=== PATIENT | male | born 1995 | race Caucasian/White ===

== ENCOUNTER 2018-10-19 20:15 | Emergency (ER) | payer OTHER, BC ==
[2018-10-19 20:22] VITALS: BP 113/66; PULSE 77; RESP 16; TEMP 99.4
[2018-10-19] MEDS ORDERED: ONDANSETRON ODT 4 MG TAB PO STA (20:50)
[2018-10-19] MEDS ORDERED: ACETAMINOPHEN TAB 500 MG TAB PO STA (20:50)
[2018-10-19] MEDS ORDERED: IBUPROFEN 800 MG TAB PO STA (20:50)
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
== END 2018-10-19 21:50 | disposition home or self-care (01) ==
LOC: EC 20:15
DX: S06.0X0A Concussion without loss of consciousness, initial encounter (principal); V43.52XA Car driver injured in collision with other type car in traffic accident, initial encounter; Y92.410 Unspecified street and highway as the place of occurrence of the external cause
CPT/HCPCS: 70450; 99284

== ENCOUNTER → 2023-01-15 | Outpatient (CLI) | payer OTHER ==
--- NOTE | 2023-01-15 14:03 | XR ---
EXAMINATION TYPE: XR ankle complete RT DATE OF EXAM: 01/15/2023 COMPARISON: NONE HISTORY: Pain TECHNIQUE: Frontal, lateral and oblique images of the right ankle are obtained. COMPARISON: None. FINDINGS: There is no acute fracture/dislocation evident. The joint spaces appear within normal pacheco its. The overlying soft tissue appears unremarkable. IMPRESSION: There is no acute fracture or dislocation seen.
== END | disposition home or self-care (01) ==
LOC: RADXRMAIN 13:40
PROVIDERS: ATTEND Internal Medicine
DX: M25.571 Pain in right ankle and joints of right foot (principal)

== ENCOUNTER → 2023-03-14 | Outpatient (CLI) | payer OTHER ==
--- NOTE | 2023-03-16 12:25 | MR ---
MRI right ankle. HISTORY: Right ankle pain and limited movement for 3 months. COMPARISON: None TECHNIQUE: Multiecho multiplanar images right ankle were obtained without contrast. FINDINGS: The osseous structures are intact and there is no bone contusion or fracture. No focal intraosseous a bnormalities are seen. The ankle mortise is intact and there is no joint effusion. The sinus Tarsi is unremarkable. There is no T no synovitis or tendon injury involving the Achilles tendon or the flexor or extensor t endons of the ankle. There is no evidence of ligamentous injury. The plantar soft tissues are normal. IMPRESSION: No significant abnormality seen.
== END | disposition home or self-care (01) ==
LOC: RADMRIMAIN 20:45
PROVIDERS: ATTEND Internal Medicine
DX: M25.571 Pain in right ankle and joints of right foot (principal)

== ENCOUNTER 2023-10-31 09:20 | Emergency (ER) | payer OTHER ==
[2023-10-31 09:28] VITALS: TEMP 98
--- NOTE | 2023-10-31 09:48 | ED ---
General Adult HPI - General Chief complaint: Abdominal Pain Stated complaint: severe back/side pain Time Seen by Provider: 10/31/23 09:24 Source: patient Mode of arrival: ambulatory Limitations: no limitations - History of Present Illness Initial comments: Dictation was produced using [employer] dictation software. please excuse any grammatical, word or spelling errors. Chief Complaint: 27-year-old male presents emergency department with right upper quadrant pain History of Present Illness: Patient 27-year-old male presents emergency department with chronic back pain. He states that over the last 1 to 2 days he has been having right upper quadrant abdominal pain. Patient states that he has been worked up for back pain in a similar area. States that now it feels like it in his belly. Denies any nausea. He is scheduled to have MRI outpatient for his back. Patient denies any fever. Denies any history of abdominal surgery. The ROS documented in this emergency department record has been reviewed and confirmed by me. Those systems with pertinent positive or negative responses have been documented in the HPI. All other systems are other negative and/or noncontributory. - Related Data Home Medications Medication Instructions Recorded Confirmed Selenium Sulfide 2.5% Lotion 1 applic TOPICAL DAILY PRN 10/31/23 10/31/23 Sertraline [Zoloft] 50 mg PO DAILY 10/31/23 10/31/23 calcium polycarbophiL [Fiber-Lax] 625 mg PO DAILY 10/31/23 10/31/23 Previous Rx's Medication Instructions Recorded HYDROcodone/APAP 5-325MG [[place] 1 tab PO Q6HR PRN 3 Days #12 tab 10/31/23 5-325] Ondansetron Odt [Zofran Odt] 4 mg PO Q8HR PRN #12 tab 10/31/23 Allergies Allergy/AdvReac Type Severity Reaction Status Date / Time No Known Allergies Allergy Verified 10/31/23 11:36 Review of Systems ROS Statement: Those systems with pertinent positive or pertinent negative responses have been documented in the HPI. ROS Other: All systems not noted in ROS Statement are negative. Past Medical History Past Medical History: No Reported History History of Any Multi-Drug Resistant Organisms: None Reported Past Surgical History: Ear Surgery Past Psychological History: No Psychological Hx Reported Past Alcohol Use History: Rare Past Drug Use History: None Reported General Exam - General Exam Comments Initial Comments: PHYSICAL EXAM: General Impression: Alert and oriented x3, mild distress secondary to pain HEENT: Normocephalic atraumatic, extra-ocular movements intact, pupils equal and reactive to light bilaterally, mucous membranes moist. Cardiovascular: Heart regular rate and rhythm Chest: Able to complete full sentences, no retractions, no tachypnea Abdomen: abdomen soft, palpatory tenderness to the right upper quadrant and epigastric area, positive Schultz sign, non-distended, no organomegaly Musculoskeletal: Pulses present and equal in all extremities, no peripheral edema Motor: no focal deficits noted Neurological: CN II-XII grossly intact, no focal motor or sensory deficits noted Skin: Intact with no visualized rashes Psych: Normal affect and mood Limitations: no limitations Course Vital Signs 10/31/23 10/31/23 09:23 11:08 Temperature 98.0 F Pulse Rate 80 62 Respiratory 18 16 Rate Blood Pressure 144/89 132/87 O2 Sat by Pulse 97 98 Oximetry - Reevaluation(s) Reevaluation #1: 10/31/23 09:48 Mother at the bedside states that everyone in her family has had their g allbladder removed. Medical Decision Making - Medical Decision Making Was pt. sent in by a medical professional or institution (, PA, MEDICINE AND HEALTH SERVICE MANAGER, urgent c are, hospital, or senior care...) When possible be specific @ -No Did you speak to anyone other than the patient for history (EMS, parent, family, police, friend...)? What history was obtained from this source @ -Some history obtained from patient's mother at the bedside states that several family members had her gallbladder removed Did you review nursing and triage notes (agree or disagree)? Why? @ -I reviewed and agree with nursing and triage notes Were old charts reviewed (outside hosp., previous admission, EMS record, old EKG, old radiological studies, urgent care reports/EKG's, senior care records)? Report findings @ -No old charts were reviewed Differential Diagnosis (chest pain, altered mental status, abdominal pain women, abdominal pain men, vaginal bleeding, musculoskeletal, weakness, fever, dyspnea, syncope, headache, dizziness, GI bleed, back pain, seizure, CVA, palpatations, mental health)? @ -Differential Abdominal Pain Men: Appendicitis, cholecystitis, diverticulosis, ischemic bowel, pancreatitis, hepatitis, UTI, gastroenteritis, AAA, incarcerated hernia, bowel obstruction, constipation, inflammatory bowel, hepatitis, peptic ulcer disease, splenic infarction, perforated viscus, testicular torsion, this is not meant to be an all-inclusive list EKG interpreted by me (3pts min.). @ -None done X-rays interpreted by me (1pt min.). @ -None done CT interpreted by me (1pt min.). @ -None done U/S interpreted by me (1pt. min.). @ -Ultrasound shows gallbladder gallstones versus sludge. Hepatic steatosis What testing was considered but not performed or refused? (CT, X-rays, U/S, labs)? Why? @ -None What meds were considered but not given or refused? Why? @ -None Was smoking cessation discussed for >3mins.? @ -No Were there social determinants of health that impacted care today? How? (Homelessness, low income, unemployed, alcoholism, drug addiction, transportation, low edu. Level, literacy, decrease access to med. care, senior care, rehab)? @ -No Was there de-escalation of care discussed even if they declined (Discuss DNR or withdrawal of care, Hospice)? DNR status @ -No What co-morbidities impacted this encounter? (DM, HTN, Smoking, COPD, CAD, Cancer, CVA, ARF, Chemo, Hep., AIDS, mental health diagnosis, sleep apnea, morbid obesity)? @ -Obesity Was patient admitted / discharged? Hospital course, mention meds given and route, prescriptions, significant lab abnormalities, going to OR and other pertinent info. @ -27-year-old male presents emergency department with right upper quadrant abdominal pain that radiates to the back. Vital signs upon arrival are within acceptable limits. Patient afebrile. Laboratory evaluation obtained. No leukocytosis. CBC metabolic panel is negative. Liver enzymes are negative. Ultrasound shows cholelithiasis versus sludge. No evidence of acute cholecystitis. Patient given symptomatic medications. Patient of outpatient referral to general surgery. Patient agreeable discharge. Return precautions discussed. Patient told to avoid fatty foods for the time being. Did you discuss the management of the patient with other professionals (professionals i.e. , PA, MEDICINE AND HEALTH SERVICE MANAGER, lab, RT, psych nurse, social services specialist, multineedle shirrer, teacher, dog control officer, manager case management)? Give summary @ -No Was critical care preformed (if so, how long)? @ -No Undiagnosed new problem with uncertain prognosis? @ -No Drug Therapy requiring intensive monitoring for toxicity (Heparin, Nitro, Insulin, Cardizem)? @ -No Were any procedures done? @ -No Diagnosis/symptom? Acute, or Chronic, or Acute on Chronic? Uncomplicated (without systemic symptoms) or Complicated (systemic symptoms)? @ -Symptomatic gallbladder Side effects of treatment? @ -No Exacerbation, Progression, or Severe Exacerbation? @ -No Poses a threat to life or bodily function? How? (Chest pain, [place], [place], pneumonia, PE, COPD, DKA, ARF, appy, cholecystitis, CVA, Diverticulitis, Homicidal, Suicidal, threat to staff... and all critical care pts) @ -No - Lab Data Result diagrams: 10/31/23 09:52 10/31/23 09:52 Lab Results 10/31/23 10/31/23 Range/Units 09:52 09:52 WBC 9.6 (3.8-10.6) k/uL RBC 5.43 (4.30-5.90) m/uL Hgb 14.9 (13.0-17.5) gm/dL Hct 45.4 (39.0-53.0) % MCV 83.5 (80.0-100.0) fL MCH 27.5 (25.0-35.0) pg MCHC 32.9 (31.0-37.0) g/dL RDW 12.9 (11.5-15.5) % Plt Count 322 (150-450) k/uL MPV 6.9 Neutrophils % 55 % Lymphocytes % 33 % Monocytes % 7 % Eosinophils % 3 % Basophils % 1 % Neutrophils # 5.3 (1.3-7.7) k/uL Lymphocytes # 3.2 (1.0-4.8) k/uL Monocytes # 0.7 (0-1.0) k/uL Eosinophils # 0.2 (0-0.7) k/uL Basophils # 0.1 (0-0.2) k/uL Sodium 139 (137-145) mmol/L Potassium 3.8 (3.5-5.1) mmol/L Chloride 110 H (98-107) mmol/L Carbon Dioxide 21 L (22-30) mmol/L Anion Gap 8 mmol/L BUN 17 (9-20) mg/dL Creatinine 0.77 (0.66-1.25) mg/dL Est GFR (CKD-EPI)AfAm >90 (>60 ml/min/1.73 sqM) Est GFR (CKD-EPI)NonAf >90 (>60 ml/min/1.73 sqM) Glucose 130 H (74-99) mg/dL Calcium 9.3 (8.4-10.2) mg/dL Total Bilirubin 0.4 (0.2-1.3) mg/dL AST 24 (17-59) U/L ALT 27 (4-49) U/L Alkaline Phosphatase 98 (38-126) U/L Total Protein 6.7 (6.3-8.2) g/dL Albumin 4.0 (3.5-5.0) g/dL Lipase 116 (23-300) U/L Disposition Clinical Impression: Gallbladder attack Disposition: HOME SELF-CARE Condition: Fair Instructions (If sedation given, give patient instructions): Gallstones (ED) Additional Instructions: Below is provided to you are a collection of general surgeons that are in town. Prescriptions: HYDROcodone/APAP 5-325MG [[place] 5-325] 1 tab PO Q6HR PRN 3 Days #12 tab PRN Reason: Severe Pain Ondansetron Odt [Zofran Odt] 4 mg PO Q8HR PRN #12 tab PRN Reason: Nausea Is patient prescribed a controlled substance at d/c from ED?: Yes If prescribed controlled substance>3 days was MAPS reviewed?: Prescribed <3 Days Referrals: Aramis Martinez MD [STAFF PHYSICIAN] - 1-2 days Indiana Villaseñor MD [STAFF PHYSICIAN] - 1-2 days Renaldo Javier MD [Medical Doctor] - 1-2 days Time of Disposition: 12:15
[2023-10-31] MEDS: SODIUM CHLORIDE 0.9% 1,000 ML IV STA (09:53)
[2023-10-31] MEDS: MORPHINE SULFATE 4 MG/ML SYRINGE IVP PRN (09:56)
[2023-10-31] MEDS: ONDANSETRON 4 MG/2 ML VIAL IVP STA ×2 (10:02→11:28)
[2023-10-31 10:15] LABS: ALT 27 U/L (4-49); AST 24 U/L (17-59); African American GFR (CKD) >90 (>60 ml/min/1.73 sqM); Alkaline Phosphatase 98 U/L (38-126); Anion Gap 8 mmol/L; Blood Urea Nitrogen 17 mg/dL (9-20); Calcium 9.3 mg/dL (8.4-10.2); Carbon Dioxide 21 mmol/L (22-30); Chloride 110 mmol/L (98-107); Glucose 130 mg/dL (74-99); Lipase 116 U/L (23-300); Non-African American GFR(CKD) >90 (>60 ml/min/1.73 sqM); Potassium 3.8 mmol/L (3.5-5.1); Sodium 139 mmol/L (137-145); Total Bilirubin 0.4 mg/dL (0.2-1.3); Total Protein 6.7 g/dL (6.3-8.2)
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
[2023-10-31 10:37] LABS: Basophils # (A) 0.1 k/uL (0-0.2); Basophils % (A) 1 %; Eosinophils # (A) 0.2 k/uL (0-0.7); Eosinophils % (A) 3 %; HCT 45.4 % (39.0-53.0); HGB 14.9 gm/dL (13.0-17.5); Lymphocytes # (A) 3.2 k/uL (1.0-4.8); Lymphocytes % (A) 33 %; MCH 27.5 pg (25.0-35.0); MCHC 32.9 g/dL (31.0-37.0); MCV 83.5 fL (80.0-100.0); Mean Platelet Volume 6.9; Monocytes # (A) 0.7 k/uL (0-1.0); Monocytes % (A) 7 %; Neutrophils # (A) 5.3 k/uL (1.3-7.7); Neutrophils % (A) 55 %; Platelet Count 322 k/uL (150-450); RBC 5.43 m/uL (4.30-5.90); RDW 12.9 % (11.5-15.5); WBC 9.6 k/uL (3.8-10.6)
[2023-10-31] MEDS: MORPHINE SULFATE 4 MG/ML SYRINGE IV STA (11:29)
[2023-10-31 12:42] VITALS: BP 116/72; PULSE 65; RESP 18
== END 2023-10-31 12:41 | disposition home or self-care (01) ==
LOC: EC 09:20
DX: G89.29 Other chronic pain (principal); K80.20 Calculus of gallbladder without cholecystitis without obstruction
CPT/HCPCS: 36415; 80053; 83690; 85025; 76705; 99284; 96374; 96375; 96376 ×2; 96361; J2270; J2405

== ENCOUNTER 2023-11-01 21:54 | Emergency (ER) | payer OTHER ==
[2023-11-01] MEDS: ONDANSETRON 4 MG/2 ML VIAL IVP STA (23:40)
[2023-11-01] MEDS: SODIUM CHLORIDE 0.9% 1,000 ML IV STA (23:41)
[2023-11-01] MEDS: KETOROLAC 15 MG/ML 1 ML VIAL IVP STA (23:42)
[2023-11-01] MEDS: PANTOPRAZOLE 40 MG/10 ML VIAL IVP STA (23:45)
[2023-11-01 23:59] LABS: Basophils % (A) 0 %; Eosinophils # (A) 0.1 k/uL (0-0.7); Eosinophils % (A) 1 %; HCT 46.7 % (39.0-53.0); HGB 15.2 gm/dL (13.0-17.5); Lymphocytes # (A) 1.4 k/uL (1.0-4.8); Lymphocytes % (A) 11 %; MCH 27.6 pg (25.0-35.0); MCHC 32.5 g/dL (31.0-37.0); MCV 84.8 fL (80.0-100.0); Mean Platelet Volume 7.1; Monocytes # (A) 0.9 k/uL (0-1.0); Monocytes % (A) 7 %; Neutrophils # (A) 10.8 k/uL (1.3-7.7); Neutrophils % (A) 81 %; Platelet Count 290 k/uL (150-450); RDW 12.8 % (11.5-15.5); WBC 13.3 k/uL (3.8-10.6)
[2023-11-02 00:19] LABS: ALT 84 U/L (4-49); AST 113 U/L (17-59); African American GFR (CKD) >90 (>60 ml/min/1.73 sqM); Albumin 4.2 g/dL (3.5-5.0); Alkaline Phosphatase 131 U/L (38-126); Amylase 37 U/L (30-110); Anion Gap 6 mmol/L; Blood Urea Nitrogen 10 mg/dL (9-20); Calcium 9.5 mg/dL (8.4-10.2); Carbon Dioxide 24 mmol/L (22-30); Chloride 107 mmol/L (98-107); Glucose 101 mg/dL (74-99); Lipase 57 U/L (23-300); Non-African American GFR(CKD) >90 (>60 ml/min/1.73 sqM); Potassium 3.8 mmol/L (3.5-5.1); Sodium 137 mmol/L (137-145); Total Bilirubin 2.6 mg/dL (0.2-1.3); Total Protein 7.1 g/dL (6.3-8.2)
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
[2023-11-02 00:44] LABS: Partial Thromboplastin Time 24.3 sec (22.0-30.0); Prothrombin Time 11.1 sec (10.0-12.5)
--- NOTE | 2023-11-02 00:52 | ED ---
General Adult HPI - General Chief complaint: Abdominal Pain Stated complaint: abd pain back pain Time Seen by Provider: 11/01/23 22:35 Source: patient, RN notes reviewed, old records reviewed Mode of arrival: ambulatory Limitations: no limitations - History of Present Illness Initial comments: Patient is a 27-year-old male who presents emergency department complaining of abdominal pain. Was recently seen for similar symptoms. Is complaining of epigastric or right upper quadrant abdominal discomfort. Has been intermittent for weeks to months however worse over the last week or so. Worse with eating. No appetite. Had a severe episode of pain earlier. Has had nonbilious nonbloody emesis as well. Presents for further evaluation. No significant pain at this point. Patient was seen here yesterday and diagnosed with biliary colic with possible stones or sludge seen in the gallbladder. Labs looked okay. Patient returns today due to increased pain. Currently is resting comfortably with minimal pain but states the pain meds he took at home might of kicked him. Has no other acute complaints at this time. No significant past medical history otherwise. Presents for further evaluation. - Related Data Home Medications Medication Instructions Recorded Confirmed Selenium Sulfide 2.5% Lotion 1 applic TOPICAL DAILY PRN 10/31/23 10/31/23 Sertraline [Zoloft] 50 mg PO DAILY 10/31/23 10/31/23 calcium polycarbophiL [Fiber-Lax] 625 mg PO DAILY 10/31/23 10/31/23 Previous Rx's Medication Instructions Recorded HYDROcodone/APAP 5-325MG [[place] 1 tab PO Q6HR PRN 3 Days #12 tab 10/31/23 5-325] Ondansetron Odt [Zofran Odt] 4 mg PO Q8HR PRN #12 tab 10/31/23 Allergies Allergy/AdvReac Type Severity Reaction Status Date / Time No Known Allergies Allergy Verified 11/01/23 22:27 Review of Systems ROS Statement: Those systems with pertinent positive or pertinent negative responses have been documented in the HPI. Review of Systems: CONST: Denies fever EYES: Denies blurry vision ENT: Denies nasal congestion C/V: Denies Chest pain RESP: Denies shortness of breath GI: Endorses abdominal pain : Denies dysuria SKIN: Denies rash. MSK: Denies joint pain. NEURO: Denies headache ROS Other: All systems not noted in ROS Statement are negative. Past Medical History Past Medical History: No Reported History Additional Past Medical History / Comment(s): gallstones/sludge History of Any Multi-Drug Resistant Organisms: None Reported Past Surgical History: Ear Surgery Past Psychological History: No Psychological Hx Reported Smoking Status: Never smoker Past Alcohol Use History: Rare Past Drug Use History: None Reported General Exam - General Exam Comments Initial Comments: General: Appears in mild distress secondary to abdominal discomfort HEAD: Normal with no signs of head trauma. EYES: PERRLA, EOMI, conjunctiva normal, no discharge. ENT: Hearing grossly intact, normal oropharynx. RESPIRATORY: Clear breath sounds bilaterally. No wheezes, rales, or rhonchi. C/V: Regular rate and rhythm. S1 and S2 auscultated, no edema, peripheral pulses 2+ and intact throughout ABD: Abdomen is soft, nondistended. Tender to palpation in the right upper quadrant and epigastric region. EXT: Normal range of motion, no obvious deformity SKIN: No rashes or lesions observed on exposed skin. NEURO: Alert and oriented x 4. Limitations: no limitations Course Vital Signs 11/01/23 11/02/23 11/02/23 22:23 00:27 02:15 Temperature 99.4 F 98.4 F Pulse Rate 86 76 70 Respiratory 20 18 18 Rate Blood Pressure 112/77 135/80 148/70 O2 Sat by Pulse 96 97 97 Oximetry Medical Decision Making - Medical Decision Making Was pt. sent in by a medical professional or institution (JORDYN Harrington, DATABASE MANAGEMENT SYSTEM SPECIALIST, urgent care, hospital, or alf...) When possible be specific @ -No Did you speak to anyone other than the patient for history (EMS, parent, family, police, friend...)? What history was obtained from this source @ -No Did you review nursing and triage notes (agree or disagree)? Why? @ -I reviewed and agree with nursing and triage notes Were old charts reviewed (outside hosp., previous admission, EMS record, old EKG, old radiological studies, urgent care reports/EKG's, alf records)? Report findings @ -Reviewed charts as well as gallbladder ultrasound from yesterday. Labs u nremarkable. Ultrasound revealed biliary sludge. Differential Diagnosis (chest pain, altered mental status, abdominal pain women, abdominal pain men, vaginal bleeding, weakness, fever, dyspnea, syncope, headache, dizziness, GI bleed, back pain, seizure, CVA, palpatations, mental health, musculoskeletal)? @ -Differential Abdominal Pain Men: Appendicitis, cholecystitis, diverticulosis, ischemic bowel, pancreatitis, hepatitis, UTI, gastroenteritis, AAA, incarcerated hernia, bowel obstruction, co nstipation, inflammatory bowel, hepatitis, peptic ulcer disease, splenic infarction, perforated viscus, testicular torsion, this is not meant to be an all-inclusive list EKG interpreted by me (3pts min.). @ -None done X-rays interpreted by me (1pt min.). @ -None done CT interpreted by me (1pt min.). @ -None done U/S interpreted by me (1pt. min.). @ -Gallbladder ultrasound read demonstrates biliary sludge. Gallbladder wall thickness is 0.4 cm. Unable to visualize the CBD. What testing was considered but not performed or refused? (CT, X-rays, U/S, labs)? Why? @ -None What meds were considered but not given or refused? Why? @ -None Did you discuss the management of the patient with other professionals (professionals i.e. , PA, DATABASE MANAGEMENT SYSTEM SPECIALIST, lab, RT, psych nurse, social sciences department chair, compensation programs manager, teacher, admitting officer, nurse case management)? Give summary @ -Discussed the case with Dr. Javier who was in agreement that patient does not need to be transferred for ERCP at this time as patient is asymptomatic. Was in agreement with plan for follow-up. Low suspicion for choledocholithiasis at this time as patient is a hyper bilirubinemia that is unconjugated. Was smoking cessation discussed for >3mins.? @ -No Was critical care preformed (if so, how long)? @ -No Were there social determinants of health that impacted care today? How? (Homelessness, low income, unemployed, alcoholism, drug addiction, transportation, low edu. Level, literacy, decrease access to med. care, penitentiary, rehab)? @ -No Was there de-escalation of care discussed even if they declined (Discuss DNR or withdrawal of care, Hospice)? DNR status @ -No What co-morbidities impacted this encounter? (DM, HTN, Smoking, COPD, CAD, Canc er, CVA, ARF, Chemo, Hep., AIDS, mental health diagnosis, sleep apnea, morbid obesity)? @ -None Was patient admitted / discharged? Hospital course, mention meds given and route, prescriptions, significant lab abnormalities, going to OR and other pertinent info. @ -Based on the patient's presentation and physical exam, presents again for abdominal pain in the right upper quadrant. Concern for gallbladder pathology. Presents for further evaluation. Vital signs currently within acceptable limi ts. Patient be symptomatically treat with IV fluids, analgesia medications, Zofran, Protonix. We will obtain abdominal labs as well as repeat ultrasound of the gallbladder. Patient was in agreement this plan. Gallbladder ultrasound read demonstrates biliary sludge. Difficult to visualize the CBD. Patient's labs remarkable for leukocytosis of 13, as well as elevated bilirubin to 2.6, AST and ALT elevated minimally as well as minimally elevated alk phos. All of these are changes from yesterday's labs. Dr. Javier of surgery was paged however it did not initially respond. I did order fractionated bilirubins at this time. Fractionated bilirubin is returned remarkable more for a unconjugated hyperbilirubinemia not a conjugated which is not fall in line with choledocholithiasis. I discussed the results with Dr. Javier who agreed with this assessment and status patient's pain and nausea is not controlled he can be admitted however can otherwise follow-up with Dr. Martinez next week. Is in agreement that patient does not require transfer at this time for GI eval for possible ERCP. I discussed this with the patient. He is feeling improved. He would like to go home.I did offer observation admission which patient declined. He would like to be discharged home. I believe this is reasonable. He has pain meds and Zofran tablets at home. He will be discharged home at this time with strict return precautions. I instructed the patient to follow up with their PCP in the next 1-3 days. I explained that the patient should return to the emergency department if they experience any worsening symptoms. Strict return precautions were discussed with the patient. The patient expressed understanding of these instructions. I answered all questions that the patient had. The patient was discharged home in [good] condition with their prescriptions and follow up information. Undiagnosed new problem with uncertain prognosis? @ -No Drug Therapy requiring intensive monitoring for toxicity (Heparin, Nitro, Insulin, Cardizem)? @ -No Were any procedures done? @ -No Diagnosis/symptom? @ -Biliary colic Acute, or Chronic, or Acute on Chronic? @ -Acute Uncomplicated (without systemic symptoms) or Complicated (systemic symptoms)? @ -Complicated Side effects of treatment? @ -None Exacerbation, Progression, or Severe Exacerbation] @ -No Poses a threat to life or bodily function? @ -Unlikely - Lab Data Result diagrams: 11/01/23 23:33 11/01/23 23:33 Lab Results 11/01/23 11/01/23 11/01/23 Range/Units 23:33 23:33 23:33 WBC 13.3 H (3.8-10.6) k/uL RBC 5.50 (4.30-5.90) m/uL Hgb 15.2 (13.0-17.5) gm/dL Hct 46.7 (39.0-53.0) % MCV 84.8 (80.0-100.0) fL MCH 27.6 (25.0-35.0) pg MCHC 32.5 (31.0-37.0) g/dL RDW 12.8 (11.5-15.5) % Plt Count 290 (150-450) k/uL MPV 7.1 Neutrophils % 81 % Lymphocytes % 11 % Monocytes % 7 % Eosinophils % 1 % Basophils % 0 % Neutrophils # 10.8 H (1.3-7.7) k/uL Lymphocytes # 1.4 (1.0-4.8) k/uL Monocytes # 0.9 (0-1.0) k/uL Eosinophils # 0.1 (0-0.7) k/uL Basophils # 0.0 (0-0.2) k/uL PT (10.0-12.5) sec INR (<1.2) APTT (22.0-30.0) sec Sodium 137 (137-145) mmol/L Potassium 3.8 (3.5-5.1) mmol/L Chloride 107 (98-107) mmol/L Carbon Dioxide 24 (22-30) mmol/L Anion Gap 6 mmol/L BUN 10 (9-20) mg/dL Creatinine 0.68 (0.66-1.25) mg/dL Est GFR (CKD-EPI)AfAm >90 (>60 ml/min/1.73 sqM) Est GFR (CKD-EPI)NonAf >90 (>60 ml/min/1.73 sqM) Glucose 101 H (74-99) mg/dL Plasma Lactic Acid Jesus 1.0 (0.7-2.0) mmol/L Calcium 9.5 (8.4-10.2) mg/dL Total Bilirubin 2.6 H (0.2-1.3) mg/dL Conjugated Bilirubin (0.0-0.3) mg/dL Unconjugated Bilirubin (0.0-1.1) mg/dL Delta Bilirubin (0.0-0.2) mg/dL AST 113 H (17-59) U/L ALT 84 H (4-49) U/L Alkaline Phosphatase 131 H (38-126) U/L Total Protein 7.1 (6.3-8.2) g/dL Albumin 4.2 (3.5-5.0) g/dL Amylase 37 (30-110) U/L Lipase 57 (23-300) U/L 11/01/23 11/02/23 Range/Units 23:51 00:50 WBC (3.8-10.6) k/uL RBC (4.30-5.90) m/uL Hgb (13.0-17.5) gm/dL Hct (39.0-53.0) % MCV (80.0-100.0) fL MCH (25.0-35.0) pg MCHC (31.0-37.0) g/dL RDW (11.5-15.5) % Plt Count (150-450) k/uL MPV Neutrophils % % Lymphocytes % % Monocytes % % Eosinophils % % Basophils % % Neutrophils # (1.3-7.7) k/uL Lymphocytes # (1.0-4.8) k/uL Monocytes # (0-1.0) k/uL Eosinophils # (0-0.7) k/uL Basophils # (0-0.2) k/uL PT 11.1 (10.0-12.5) sec INR 1.0 (<1.2) APTT 24.3 (22.0-30.0) sec Sodium (137-145) mmol/L Potassium (3.5-5.1) mmol/L Chloride (98-107) mmol/L Carbon Dioxide (22-30) mmol/L Anion Gap mmol/L BUN (9-20) mg/dL Creatinine (0.66-1.25) mg/dL Est GFR (CKD-EPI)AfAm (>60 ml/min/1.73 sqM) Est GFR (CKD-EPI)NonAf (>60 ml/min/1.73 sqM) Glucose (74-99) mg/dL Plasma Lactic Acid Jesus (0.7-2.0) mmol/L Calcium (8.4-10.2) mg/dL Total Bilirubin 2.6 H (0.2-1.3) mg/dL Conjugated Bilirubin 0.2 (0.0-0.3) mg/dL Unconjugated Bilirubin 1.2 H (0.0-1.1) mg/dL Delta Bilirubin 1.2 H (0.0-0.2) mg/dL AST (17-59) U/L ALT (4-49) U/L Alkaline Phosphatase (38-126) U/L Total Protein (6.3-8.2) g/dL Albumin (3.5-5.0) g/dL Amylase (30-110) U/L Lipase (23-300) U/L Disposition Clinical Impression: Biliary colic Disposition: HOME SELF-CARE Condition: Good Instructions (If sedation given, give patient instructions): Biliary Colic (ED), Abdominal Pain (ED) Is patient prescribed a controlled substance at d/c from ED?: No Referrals: Vic Sutton DO [Primary Care Provider] - 1-2 days Aramis Martinez MD [STAFF PHYSICIAN] - 1-2 days Time of Disposition: 02:09
[2023-11-02 01:06] VITALS: RESP 18
[2023-11-02] MEDS: METOCLOPRAMIDE 5 MG/ML 2 ML VIAL IVP STA (01:08)
[2023-11-02 01:48] LABS: Bilirubin, Conjugated 0.2 mg/dL (0.0-0.3); Bilirubin, Delta 1.2 mg/dL (0.0-0.2); Bilirubin,Unconjugated 1.2 mg/dL (0.0-1.1); Total Bilirubin 2.6 mg/dL (0.2-1.3)
[2023-11-02 02:15] VITALS: BP 148/70; PULSE 70; TEMP 98.4
== END 2023-11-02 02:16 | disposition home or self-care (01) ==
LOC: EC 21:54
DX: K80.50 Calculus of bile duct without cholangitis or cholecystitis without obstruction (principal)
CPT/HCPCS: 36415; 80053; 82150; 83605; 83690; 85025; 85610; 85730; 99285; 96374; 96375 ×3; 96361; J2405; J1885; C9113; 76705; 82248

== ENCOUNTER 2023-11-03 15:46 | Emergency (ER) | payer OTHER ==
[2023-11-03] MEDS: SODIUM CHLORIDE 0.9% 1,000 ML IV STA (16:32)
[2023-11-03] MEDS: ONDANSETRON 4 MG/2 ML VIAL IVP STA (16:34)
[2023-11-03] MEDS: MORPHINE SULFATE 4 MG/ML SYRINGE IVP STA (16:34)
[2023-11-03] MEDS: KETOROLAC 15 MG/ML 1 ML VIAL IVP STA (16:35)
[2023-11-03 16:47] LABS: Basophils % (A) 0 %; Eosinophils # (A) 0.1 k/uL (0-0.7); Eosinophils % (A) 1 %; HCT 42.6 % (39.0-53.0); HGB 14.6 gm/dL (13.0-17.5); Lymphocytes # (A) 1.4 k/uL (1.0-4.8); Lymphocytes % (A) 14 %; MCH 28.8 pg (25.0-35.0); MCHC 34.2 g/dL (31.0-37.0); MCV 84.3 fL (80.0-100.0); Mean Platelet Volume 7.3; Monocytes # (A) 0.8 k/uL (0-1.0); Monocytes % (A) 8 %; Neutrophils # (A) 7.4 k/uL (1.3-7.7); Neutrophils % (A) 75 %; Platelet Count 302 k/uL (150-450); RBC 5.05 m/uL (4.30-5.90); RDW 12.9 % (11.5-15.5); WBC 9.9 k/uL (3.8-10.6)
[2023-11-03 17:02] LABS: ALT 169 U/L (4-49); AST 81 U/L (17-59); African American GFR (CKD) >90 (>60 ml/min/1.73 sqM); Albumin 3.9 g/dL (3.5-5.0); Alkaline Phosphatase 189 U/L (38-126); Amylase 61 U/L (30-110); Anion Gap 12 mmol/L; Bilirubin, Conjugated 3.1 mg/dL (0.0-0.3); Bilirubin, Delta 2.1 mg/dL (0.0-0.2); Bilirubin,Unconjugated 1.5 mg/dL (0.0-1.1); Blood Urea Nitrogen 9 mg/dL (9-20); Calcium 9.1 mg/dL (8.4-10.2); Carbon Dioxide 19 mmol/L (22-30); Chloride 106 mmol/L (98-107); Glucose 130 mg/dL (74-99); Lipase 451 U/L (23-300); Non-African American GFR(CKD) >90 (>60 ml/min/1.73 sqM); Potassium 3.5 mmol/L (3.5-5.1); Sodium 137 mmol/L (137-145); Total Bilirubin 6.7 mg/dL (0.2-1.3); Total Protein 6.8 g/dL (6.3-8.2)
--- NOTE | 2023-11-03 17:14 | ED ---
Abdominal Pain HPI - General Chief Complaint: Abdominal Pain Stated Complaint: abd pain, SOB Time Seen by Provider: 11/03/23 16:13 Source: patient Mode of arrival: ambulatory Limitations: no limitations - History of Present Illness Initial Comments: 27-year-old male presenting with chief complaint of abdominal pain. Patient has had worsening right upper quadrant pain. He was seen here on the and and had ultrasound performed, he does have biliary sludge and possible stones. During his visit on the he did have an elevated bilirubin 3.1, however because this was mostly unconjugated bilirubin the decision was made to have him follow-up in the office with surgery. He does have an appointment on Sunday to meet with general surgeon Dr. Martinez. However he states that the pain has been persistent and worsening. He has been able to drink but has had a decreased appetite. He notices yellowing of the skin. States that his urine is also darker. No fevers. No vomiting. - Related Data Home Medications Medication Instructions Recorded Confirmed Selenium Sulfide 2.5% Lotion 1 applic TOPICAL DAILY PRN 10/31/23 10/31/23 Sertraline [Zoloft] 50 mg PO DAILY 10/31/23 10/31/23 calcium polycarbophiL [Fiber-Lax] 625 mg PO DAILY 10/31/23 10/31/23 Previous Rx's Medication Instructions Recorded HYDROcodone/APAP 5-325MG [[place] 1 tab PO Q6HR PRN 3 Days #12 tab 10/31/23 5-325] Ondansetron Odt [Zofran Odt] 4 mg PO Q8HR PRN #12 tab 10/31/23 Allergies Allergy/AdvReac Type Severity Reaction Status Date / Time No Known Allergies Allergy Verified 11/03/23 15:56 Review of Systems ROS Statement: Those systems with pertinent positive or pertinent negative responses have been documented in the HPI. ROS Other: All systems not noted in ROS Statement are negative. Past Medical History Past Medical History: No Reported History Additional Past Medical History / Comment(s): gallstones/sludge History of Any Multi-Drug Resistant Organisms: None Reported Past Surgical History: Ear Surgery Past Psychological History: No Psychological Hx Reported Smoking Status: Never smoker Past Alcohol Use History: Rare Past Drug Use History: None Reported General Exam Limitations: no limitations General appearance: alert, in no apparent distress Head exam: Present: atraumatic, normocephalic Eye exam: Present: EOMI, scleral icterus Neck exam: Present: normal inspection. Absent: meningismus Respiratory exam: Present: normal lung sounds bilaterally. Absent: respiratory distress, wheezes, rales, rhonchi, stridor Cardiovascular Exam: Present: regular rate, normal rhythm, normal heart sounds. Absent: systolic murmur, diastolic murmur, rubs, gallop, clicks GI/Abdominal exam: Present: soft, tenderness, guarding. Absent: distended, rebound, rigid Expanded GI/Abdominal exam: Present: Schlutz's sign Neurological exam: Present: alert, oriented X3 Psychiatric exam: Present: normal affect, normal mood Skin exam: Present: warm, dry Course Vital Signs 11/03/23 11/03/23 15:52 18:27 Temperature 98.3 F 98.4 F Pulse Rate 78 58 L Respiratory 16 18 Rate Blood Pressure 103/68 128/73 O2 Sat by Pulse 96 96 Oximetry Medical Decision Making - Medical Decision Making Was pt. sent in by a medical professional or institution (, PA, JAVA XML DEVELOPER, urgent care, hospital, or detention...) When possible be specific @ -No Did you speak to anyone other than the patient for history (EMS, parent, family, police, friend...)? What history was obtained from this source @ -No Did you review nursing and triage notes (agree or disagree)? Why? @ -I reviewed and agree with nursing and triage notes Were old charts reviewed (outside hosp., previous admission, EMS record, old EKG, old radiological studies, urgent care reports/EKG's, detention records)? Report findings @ -Patient's previous 2 visits were reviewed Differential Diagnosis (chest pain, altered mental status, abdominal pain women, abdominal pain men, vaginal bleeding, weakness, fever, dyspnea, syncope, headache, dizziness, GI bleed, back pain, seizure, CVA, palpatations, mental health, musculoskeletal)? @ -[facility] Differential Abdominal Pain Men: Appendicitis, cholecystitis, diverticulosis, ischemic bowel, pancreatitis, hepatitis, UTI, gastroenteritis, AAA, incarcerated hernia, bowel obstruction, constipation, inflammatory bowel, hepatitis, peptic ulcer disease, splenic infarction, perforated viscus, testicular torsion... This is not meant to be an all-inclusive list EKG interpreted by me (3pts min.). @ -As above X-rays interpreted by me (1pt min.). @ -None done CT interpreted by me (1pt min.). @ -None done U/S interpreted by me (1pt. min.). @ -Ultrasound shows slightly hypoechoic appearance to the liver may be in a t echnical basis or could reflect hepatitis. Correlate with LFTs and risk factors. There seems to be some scattered double ducts in the liver which can be seen with intrahepatic biliary ductal dilation. Given the normal caliber of the bile duct cholestasis is a consideration. Correlate with alkaline phosphatase and bilirubin levels. Echogenic sludge filling the gallbladder lumen. Nonspecific gallbladder wall thickening. What testing was considered but not performed or refused? (CT, X-rays, U/S, labs)? Why? @ -None What meds were considered but not given or refused? Why? @ -None Did you discuss the management of the patient with other professionals (professionals i.e. , PA, JAVA XML DEVELOPER, lab, RT, psych nurse, marriage and family social worker, trial lawyer, teacher, nuclear officer, cyanide case hardener)? Give summary @ -No Was smoking cessation discussed for >3mins.? @ -No Was critical care preformed (if so, how long)? @ -No Were there social determinants of health that impacted care today? How? (Homelessness, low income, unemployed, alcoholism, drug addiction, transportation, low edu. Level, literacy, decrease access to med. care, care home, rehab)? @ -No Was there de-escalation of care discussed even if they declined (Discuss DNR or withdrawal of care, Hospice)? DNR status @ -No What co-morbidities impacted this encounter? (DM, HTN, Smoking, COPD, CAD, Cancer, CVA, ARF, Chemo, Hep., AIDS, mental health diagnosis, sleep apnea, morbid obesity)? @ -None Was patient admitted / discharged? Hospital course, mention meds given and route, prescriptions, significant lab abnormalities, going to OR and other pertinent info. @ -27-year-old male presenting chief complaint of worsening right upper quadrant pain. Patient has known gallstones and sludge. Labs show bilirubin of 6.7, conjugated is 3.1 and unconjugated is 1.5. AST 81 ALT 169 alkaline phosphatase 189. Lipase 451. Ultrasound shows intrahepatic biliary ductal dilatation. Patient will require GI services which we do not have at this time. He will be transferred to [facility]. Accepting physician is Dr. Canales patient is agreeable with this plan. Patient is treated with metronidazole 500 mg and ceftriaxone 1 g. I discussed this case with my attending Dr. Perla Undiagnosed new problem with uncertain prognosis? @ -No Drug Therapy requiring intensive monitoring for toxicity (Heparin, Nitro, Insulin, Cardizem)? @ -No Were any procedures done? @ -No Diagnosis/symptom? @ -Choledocholithiasis, hyperbilirubinemia, hepatitis Acute, or Chronic, or Acute on Chronic? @ -Acute Uncomplicated (without systemic symptoms) or Complicated (systemic symptoms)? @ -Complicated Side effects of treatment? @ -No Exacerbation, Progression, or Severe Exacerbation? @ -No Poses a threat to life or bodily function? How? (Chest pain, [place], [place], pneumonia, PE, COPD, DKA, ARF, appy, cholecystitis, CVA, Diverticulitis, Homicidal, Suicidal, threat to staff... and all critical care pts) @ -Yes - Lab Data Result diagrams: 11/03/23 16:38 11/03/23 16:38 Lab Results 11/03/23 11/03/23 11/03/23 Range/Units 16:38 16:38 16:38 WBC 9.9 (3.8-10.6) k/uL RBC 5.05 (4.30-5.90) m/uL Hgb 14.6 (13.0-17.5) gm/dL Hct 42.6 (39.0-53.0) % MCV 84.3 (80.0-100.0) fL MCH 28.8 (25.0-35.0) pg MCHC 34.2 (31.0-37.0) g/dL RDW 12.9 (11.5-15.5) % Plt Count 302 (150-450) k/uL MPV 7.3 Neutrophils % 75 % Lymphocytes % 14 % Monocytes % 8 % Eosinophils % 1 % Basophils % 0 % Neutrophils # 7.4 (1.3-7.7) k/uL Lymphocytes # 1.4 (1.0-4.8) k/uL Monocytes # 0.8 (0-1.0) k/uL Eosinophils # 0.1 (0-0.7) k/uL Basophils # 0.0 (0-0.2) k/uL Sodium 137 (137-145) mmol/L Potassium 3.5 (3.5-5.1) mmol/L Chloride 106 (98-107) mmol/L Carbon Dioxide 19 L (22-30) mmol/L Anion Gap 12 mmol/L BUN 9 (9-20) mg/dL Creatinine 0.56 L (0.66-1.25) mg/dL Est GFR (CKD-EPI)AfAm >90 (>60 ml/min/1.73 sqM) Est GFR (CKD-EPI)NonAf >90 (>60 ml/min/1.73 sqM) Glucose 130 H (74-99) mg/dL Plasma Lactic Acid Jesus 0.8 (0.7-2.0) mmol/L Calcium 9.1 (8.4-10.2) mg/dL Total Bilirubin 6.7 H (0.2-1.3) mg/dL Conjugated Bilirubin 3.1 H (0.0-0.3) mg/dL Unconjugated Bilirubin 1.5 H (0.0-1.1) mg/dL Delta Bilirubin 2.1 H (0.0-0.2) mg/dL AST 81 H (17-59) U/L ALT 169 H (4-49) U/L Alkaline Phosphatase 189 H (38-126) U/L Total Protein 6.8 (6.3-8.2) g/dL Albumin 3.9 (3.5-5.0) g/dL Amylase 61 (30-110) U/L Lipase 451 H (23-300) U/L Disposition Clinical Impression: Choledocholithiasis, Hyperbilirubinemia, Hepatitis Disposition: OTHER INSTITUTION NOT DEFINED Condition: Stable Referrals: Vic Sutton DO [Primary Care Provider] - 1-2 days Time of Disposition: 18:35 - Out of Hospital Transfer - Req. Specs Out of Hospital Transfer - Requested Specifics: Other Emergency Center ([facility] [place])
--- NOTE | 2023-11-03 17:45 | US ---
EXAMINATION TYPE: US abdomen limited DATE OF EXAM: 11/03/2023 COMPARISON: US 10/30 & 10/31 CLINICAL INDICATION: Male, 27 years old with history of RUQ pain; hx gallstones/ sludge, new jaundice and dark urine TECHNIQUE: Multiple sonographic images of the right upper quadrant are obtained. FINDINGS: EXAM MEASUREMENTS: Liver Length: 16.9 cm Gallbladder Wall: 4.8 mm CBD: 0.4 cm Right Kidney: 12.5x5.9x5.7 cm PLANT OPERATIONS MANAGER NOTES: exam limited by bowel gas and body habitus Pancreas: Tail obscured by overlying bowel gas Liver: Hypoechoic appearance. Scattered double ducts within the liver. Limited visualization due to body habitus. Gallbladder: wall thickened, filled with echogenic sludge Evidence for sonographic Schultz's sign: No CBD: wnl, as best visualized Right Kidney: wnl IMPRESSION: 1. Slightly hypoechoic appearance to the liver may be on a technical basis or could reflect hepatitis . Correlate with LFTs and risk factors. 2. There seems to be some scattered double ducts in the liver which can be seen with intrahepatic riya iary ductal dilatation. Given the normal caliber bile duct, cholestasis is a consideration. Correlate with alkaline phosphatase and bilirubin levels. 3. Echogenic sludge filling the gallbladder lumen. Nonspecific gallbladder wall thickening.
[2023-11-03 18:29] VITALS: RESP 18
[2023-11-03] MEDS: metroNIDAZOLE-NS PMX 500 MG in SALINE 1 100ML.BAG IVPB STA (18:55)
[2023-11-03] MEDS: cefTRIAXone IN SWFI 1,000 MG/10 ML SYRINGE IVP STA (18:56)
[2023-11-03] MEDS: HYDROmorphone 1 MG/ML 1 ML SYRINGE IVP STA (19:58)
[2023-11-03] MEDS: METOCLOPRAMIDE 5 MG/ML 2 ML VIAL IVP STA (19:58)
[2023-11-03 20:09] VITALS: BP 134/81; PULSE 69; TEMP 98.6
== END 2023-11-03 20:07 | disposition other institution (70) ==
LOC: EC 15:46
DX: K80.50 Calculus of bile duct without cholangitis or cholecystitis without obstruction (principal); K75.9 Inflammatory liver disease, unspecified
CPT/HCPCS: 36415; 80053; 82150; 82248; 83605; 83690; 85025; 76705; 99285; 96365; 96361; 96375 ×6; J2270; J2765; J2405; J0696; J1170; J1885; J1836

== ENCOUNTER 2023-11-07 11:11 | Day surgery (SDC) | payer OTHER ==
[2023-11-07] MEDS: ACETAMINOPHEN TAB 500 MG TAB PO PRN (11:27)
[2023-11-07] MEDS: HEPARIN SODIUM,PORCINE 5,000 UNIT/ML 1 ML VIAL SQ PRN (11:27)
[2023-11-07] MEDS: DEXAMETHASONE SOD PHOSPHATE 4 MG/ML 1 ML VIAL IVP STA (11:28)
[2023-11-07] MEDS: ONDANSETRON 4 MG/2 ML VIAL IVP STA (11:28)
[2023-11-07] MEDS: SCOPOLAMINE 1 MG/72 HR PATCH TRANSDERM STA (11:30)
[2023-11-07] MEDS: IV FLUID CONTINUATION 1,000 ML IV ONE ×2 (11:40→14:08)
[2023-11-07] MEDS: LACTATED RINGERS 1,000 ML BAG IV STA (11:43)
[2023-11-07] MEDS ORDERED: fentaNYL (PF) 50 MCG/ML 2 ML AMP ONE (11:47)
[2023-11-07] MEDS ORDERED: KETOROLAC 15 MG/ML 1 ML VIAL ONE (11:47)
[2023-11-07] MEDS ORDERED: LIDOCAINE 1% INJ 10MG/ML (20 ML MDV) ONE (11:47)
[2023-11-07] MEDS ORDERED: MIDAZOLAM 2 MG/2 ML VIAL ONE (11:47)
[2023-11-07] MEDS ORDERED: PROPOFOL 10 MG/ML 20 ML VIAL IV ONE (11:47)
[2023-11-07] MEDS ORDERED: KETAMINE HCL IN 0.9 % NACL 50 MG/5 ML SYRINGE ONE (11:47)
[2023-11-07] MEDS ORDERED: SUCCINYLCHOLINE CHLORIDE 200 MG/10 ML VIAL IV ONE (11:47)
[2023-11-07] MEDS ORDERED: ROCURONIUM 10 MG/ML (5 ML VIAL) IV ONE (11:47)
[2023-11-07] MEDS: LIDOCAINE 1%-EPI 1:100,000 20 ML VIAL SQ ONE (12:12)
--- NOTE | 2023-11-07 12:43 | P.OP ---
Date of Procedure: 11/07/23 Preoperative Diagnosis: cholelithiasis, history of choledocholithiasis Postoperative Diagnosis: cholecystitis Cholelithiasis Procedure(s) Performed: laparoscopic cholecystectomy Anesthesia: ZAINAB Surgeon: Aramis Martinez Estimated Blood Loss (ml): 5 Pathology: other (gallbladder) Condition: stable Disposition: PACU Description of Procedure: The patient was placed on the operating table. The patient received a general endotracheal tube anesthesia. The patients abdomen was prepped and draped in the usual sterile fashion. Through an infraumbilical stab incision, the fascia of the anterior abdominal wall was grasped with a pair of Kochers and then the Veress needle was placed in the peritoneal cavity. Position of the Veress needle was confirmed with positive drop test. The abdomen was then insufflated. After adequate insufflation, the 10 mm trocar was placed in the peritoneal cavity. Following this the laparoscope was placed in the peritoneal cavity. The patient was placed in the head-up, right side up position and then a 5 mm trocar was placed in the right lateral and right subcostal position under direct visualization. A 8 mm trocar was placed in the epigastric position. The gallbladder was grasped in the fundus and infundibulum. Traction on the gallbladder was placed in the lateral and the cephalad positions. The triangle of Calot was visualized.. The cystic duct was bluntly dissected until the union of the cystic duct and common bile duct was seen. A critical view of safety was achieved. The cystic duct was then divided and sealed with the Harmonic scissors. A PDS Endoloop was then placed throughout the cystic duct stump. The cystic artery divided and sealed with the Harmonic scissors. The gallbladder was then removed from the liver bed using Harmonic scissors. The gallbladder was then extracted through the epigastric port site. Operative field was checked for any bleeding spots and Harmonic scissors was used to coagulate the liver bed. The abdomen was irrigated. The trocars were removed. The skin was closed using interrupted 3-0 Vicryl suture. Dermabond dressing were applied. The patient tolerated the procedure well.
[2023-11-07 12:53] VITALS: TEMP 98
[2023-11-07] MEDS ORDERED: droPERidol 5 MG/2 ML VIAL IM ONE (12:58)
[2023-11-07] MEDS: droPERidol 5 MG/2 ML VIAL IVP ONE (13:08)
[2023-11-07] MEDS: HYDROmorphone 0.5 MG/0.5 ML SYRINGE IVP PRN (13:13)
[2023-11-07] MEDS: LACTATED RINGERS 1,000 ML IV ONE ×2 (14:08→15:05)
[2023-11-07 15:26] VITALS: BP 125/64; PULSE 80; RESP 20
== END 2023-11-07 15:27 | disposition home or self-care (01) ==
LOC: OR 11:11
PROVIDERS: ATTEND Surgery
DX: K80.10 Calculus of gallbladder with chronic cholecystitis without obstruction (principal); F32.A Depression, unspecified; Z79.899 Other long term (current) drug therapy
CPT/HCPCS: 88304; 47562; J2250; J0330; J1644; J1100; J0690; J2405; J2001; J3010; J1885; J2704; J1170; J1790